=== PATIENT | male | born 1955 | race Caucasian/White ===

== ENCOUNTER 2019-04-18 19:22 | Observation (INO) ==
[2019-04-18] MEDS ORDERED: diazePAM 10 MG/2 ML SYRINGE IVP ONE (20:20)
[2019-04-18] MEDS ORDERED: Thiamine (B-1) 100 MG, Folic Acid 1 MG, MVI, adult with vitamin K 10 ML in 0.9 % Sodi... IVPB ONE (20:25)
[2019-04-18] MEDS ORDERED: Ondansetron 4 MG/2 ML VIAL IVP ONE (20:48)
[2019-04-18 21:03] LABS: Basophils # 0.1 K/mcL (0.0-0.2); Basophils % 0.8 %; Eosinophils % 0.1 %; Hematocrit 42.8 % (37.5-50.1); Hemoglobin 15.2 g/dL (12.9-16.9); Immature Granulocytes % 0.3 % (0-4); Lymphocytes % 13.4 %; Mean Corpuscular HGB Conc 35.5 g/dL (31.6-35.5); Mean Corpuscular Hemoglobin 29.4 pg (28.0-33.3); Mean Corpuscular Volume 82.8 fL (83.0-100.0); Mean Platelet Volume 9.1 fL (9.4-12.4); Monocytes # 0.4 K/mcL (0.0-1.3); Monocytes % 5.6 %; Neutrophils # 5.9 K/mcL (1.6-8.9); Platelet Count 169 K/mcL (140-400); Red Blood Count 5.17 M/mcL (4.19-5.50); Segmented Neutrophils % 79.8 %; White Blood Count 7.4 K/mcL (4.3-11.1)
[2019-04-18 21:23] LABS: Alanine Aminotransferase 77 Units/L (7-52); Albumin 4.5 g/dL (3.5-5.7); Albumin/Globulin Ratio 1.4 (1.1-2.2); Alkaline Phosphatase 67 Units/L (34-104); Aspartate Amino Transferase 121 Units/L (13-39); BUN/Creatinine Ratio 27 (6-26); Bilirubin,Total 1.2 mg/dL (0.3-1.0); Blood Urea Nitrogen 18 mg/dL (8-23); Calcium 9.3 mg/dL (8.6-10.3); Carbon Dioxide 22 mEq/L (23-29); Chloride 85 mEq/L (98-107); Globulin 3.3 g/dL (2.4-3.5); Glucose 189 mg/dL (70-105); Magnesium 1.5 mg/dL (1.6-2.6); Osmolality,Calculated 281 (280-300); Potassium 3.9 mEq/L (3.5-5.1); Sodium 132 mEq/L (136-145); Total Protein 7.8 g/dL (6.4-8.9); eGFR For African Americans > 60 (> 60); eGFR For Non-African Americans > 60 (> 60)
[2019-04-18] MEDS ORDERED: *HR* LORazepam 2 MG/ML VIAL IVP PRN ×2 (22:57)
[2019-04-18 23:17] LABS: Amylase 64 Units/L (29-103); Lipase 16 Units/L (11-82)
[2019-04-18] MEDS ORDERED: *HR* Promethazine 25 MG/ML VIAL IVP ONE (23:55)
[2019-04-19] MEDS ORDERED: Naloxone 0.4 MG/ML INJ IVP PRN (00:03)
[2019-04-19] MEDS: 0.9 % Sodium Chloride 1,000 ML IVC SCH ×3 (00:20→20:50)
[2019-04-19] MEDS ORDERED: *HR* LORazepam 2 MG/ML VIAL IVP ONE (01:16)
[2019-04-19 04:41] LABS: Hematocrit 37.9 % (37.5-50.1); Hemoglobin 13.1 g/dL (12.9-16.9); Immature Platelets 2.5 % (1.1-6.1); Mean Corpuscular HGB Conc 34.6 g/dL (31.6-35.5); Mean Corpuscular Hemoglobin 29.2 pg (28.0-33.3); Mean Corpuscular Volume 84.4 fL (83.0-100.0); Mean Platelet Volume 9.4 fL (9.4-12.4); Red Blood Count 4.49 M/mcL (4.19-5.50); White Blood Count 6.7 K/mcL (4.3-11.1)
[2019-04-19 05:00] LABS: BUN/Creatinine Ratio 25 (6-26); Blood Urea Nitrogen 15 mg/dL (8-23); Calcium 8.7 mg/dL (8.6-10.3); Carbon Dioxide 28 mEq/L (23-29); Chloride 91 mEq/L (98-107); Chol/HDL Ratio 2.2 (0-4.9); Cholesterol 184 mg/dL (< 200); Glucose 111 mg/dL (70-105); HDL Cholesterol 83 mg/dL (40-59); LDL Cholesterol,Calculated 80 mg/dL (0-99); Osmolality,Calculated 280 (280-300); Phosphorous 2.1 mg/dL (2.7-4.5); Sodium 134 mEq/L (136-145); Triglycerides 107 mg/dL (< 150); eGFR For African Americans > 60 (> 60); eGFR For Non-African Americans > 60 (> 60)
[2019-04-19 05:25] LABS: Vitamin B12 731 pg/mL (250-1100); Vitamin D 25 Hydroxy 29 ng/mL (30-80)
[2019-04-19 05:29] LABS: Hepatitis B Surface Antigen Nonreactive (Nonreactive)
[2019-04-19 05:57] LABS: Hepatitis C Virus Antibody Nonreactive (Nonreactive)
[2019-04-19 05:58] LABS: Hepatitis B Core IgM Nonreactive (Nonreactive)
[2019-04-19 05:59] LABS: Hepatitis A Antibody IgM Nonreactive (Nonreactive)
[2019-04-19] MEDS: Gabapentin 300 MG CAPSULE PO SCH ×3 (09:19→23:40)
[2019-04-19] MEDS: hydroCHLOROthiazide 25 MG TABLET PO SCH (09:19)
[2019-04-19] MEDS: Aspirin Enteric Coated 81 MG Tablet PO SCH (09:19)
[2019-04-19] MEDS: Lisinopril 20 MG TABLET PO SCH (09:19)
[2019-04-19] MEDS: NALOXONE SL SCH (09:20)
[2019-04-19] MEDS: BUPRENORPHINE SL SCH (09:20)
[2019-04-19] MEDS: *HR* LORazepam 2 MG/ML VIAL IVP PRN ×2 (09:26→15:43)
[2019-04-19] MEDS ORDERED: PHENobarbitaL 32.4 MG TABLET PO SCH ×3 (16:15→21:00)
[2019-04-20] MEDS ORDERED: *HR* Metoprolol 5 MG/5 ML VIAL IVP ONE (01:08)
[2019-04-20] MEDS: *HR* LORazepam 2 MG/ML VIAL IVP PRN (04:18)
[2019-04-20 05:59] LABS: Hematocrit 38.6 % (37.5-50.1); Hemoglobin 13.1 g/dL (12.9-16.9); Mean Corpuscular HGB Conc 33.9 g/dL (31.6-35.5); Mean Corpuscular Hemoglobin 29.2 pg (28.0-33.3); Mean Corpuscular Volume 86.2 fL (83.0-100.0); Mean Platelet Volume 9.9 fL (9.4-12.4); Platelet Count 75 K/mcL (140-400); Red Blood Count 4.48 M/mcL (4.19-5.50); Red Cell Distribution Width 13.2 % (11.5-14.5); White Blood Count 4.8 K/mcL (4.3-11.1)
[2019-04-20 06:00] LABS: BUN/Creatinine Ratio 29 (6-26); Blood Urea Nitrogen 21 mg/dL (8-23); Calcium 9.1 mg/dL (8.6-10.3); Carbon Dioxide 29 mEq/L (23-29); Chloride 97 mEq/L (98-107); Glucose 97 mg/dL (70-105); Osmolality,Calculated 285 (280-300); Potassium 3.8 mEq/L (3.5-5.1); Sodium 136 mEq/L (136-145); eGFR For African Americans > 60 (> 60); eGFR For Non-African Americans > 60 (> 60)
[2019-04-20] MEDS: 0.9 % Sodium Chloride 1,000 ML IVC SCH (06:40)
[2019-04-20] MEDS: Gabapentin 300 MG CAPSULE PO SCH (08:27)
[2019-04-20] MEDS: Lisinopril 20 MG TABLET PO SCH (08:27)
[2019-04-20] MEDS: hydroCHLOROthiazide 25 MG TABLET PO SCH (08:27)
[2019-04-20] MEDS: NALOXONE SL SCH (08:27)
[2019-04-20] MEDS: BUPRENORPHINE SL SCH (08:27)
[2019-04-20] MEDS: Aspirin Enteric Coated 81 MG Tablet PO SCH (08:27)
[2019-04-20 09:31] VITALS: BP 180/123
[2019-04-20] MEDS ORDERED: hydrALAZINE 25 MG TABLET PO ONE (09:33)
== END 2019-04-20 09:50 | disposition left against medical advice (07) ==
LOC: 2ANU 19:22 → EMEROOARM 19:22 → SUATTDRO 22:12 → 2ANU 22:22
PROVIDERS: ADMIT Student in an Organized Health Care Education/Training Program; ATTEND Student in an Organized Health Care Education/Training Program

== ENCOUNTER 2020-09-23 05:30 | Inpatient (IN) ==
[2020-09-23] MEDS ORDERED: Ondansetron 4 MG/2 ML VIAL IVP ONE (05:34)
[2020-09-23] MEDS ORDERED: 0.9 % Sodium Chloride 1,000 ML IVC ONE ×2 (05:34→06:45)
[2020-09-23] MEDS ORDERED: Thiamine (B-1) 100 MG in 0.9 % Sodium Chloride 50 ML IVPB ONE (05:58)
[2020-09-23 06:00] LABS: Basophils # 0.1 K/mcL (0.0-0.2); Eosinophils % 0.1 %; Hematocrit 43.4 % (37.5-50.1); Hemoglobin 14.4 g/dL (12.9-16.9); Immature Granulocytes % 1.1 % (0-4); Lymphocytes # 0.7 K/mcL (0.6-4.6); Lymphocytes % 8.6 %; Mean Corpuscular HGB Conc 33.2 g/dL (31.6-35.5); Mean Corpuscular Hemoglobin 29.3 pg (28.0-33.3); Mean Corpuscular Volume 88.4 fL (83.0-100.0); Mean Platelet Volume 9.1 fL (9.4-12.4); Monocytes # 0.6 K/mcL (0.0-1.3); Monocytes % 6.8 %; Neutrophils # 6.7 K/mcL (1.6-8.9); Platelet Count 101 K/mcL (140-400); Red Blood Count 4.91 M/mcL (4.19-5.50); Red Cell Distribution Width 13.4 % (11.5-14.5); Segmented Neutrophils % 82.4 %; White Blood Count 8.1 K/mcL (4.3-11.1)
[2020-09-23] MEDS ORDERED: Folic Acid 1 MG, Thiamine (B-1) 100 MG in 0.9 % Sodium Chloride 50 ML IVPB ONE (06:15)
[2020-09-23] MEDS ORDERED: Famotidine 20 MG/2 ML VIAL IVP ONE (06:20)
[2020-09-23] MEDS ORDERED: Prochlorperazine 10 MG/2 ML VIAL IVP ONE (06:21)
[2020-09-23 06:23] LABS: Alanine Aminotransferase 284 Units/L (7-52); Albumin 4.5 g/dL (3.5-5.7); Albumin/Globulin Ratio 1.6 (1.1-2.2); Alkaline Phosphatase 91 Units/L (34-104); Aspartate Amino Transferase 465 Units/L (13-39); BUN/Creatinine Ratio 22 (6-26); Bilirubin,Direct 1.1 mg/dL (0.0-0.2); Bilirubin,Indirect 1.3 mg/dL (0.0-1.0); Bilirubin,Total 2.4 mg/dL (0.3-1.0); Blood Urea Nitrogen 16 mg/dL (8-23); Carbon Dioxide 18 mEq/L (23-29); Chloride 90 mEq/L (98-107); Ethanol 350 mg/dL (Less than 10); Globulin 2.9 g/dL (2.4-3.5); Glucose 157 mg/dL (70-105); Magnesium 1.4 mg/dL (1.6-2.6); Osmolality,Calculated 292 (280-300); Potassium 3.5 mEq/L (3.5-5.1); Sodium 139 mEq/L (136-145); Total Protein 7.4 g/dL (6.4-8.9); Troponin I 0.03 ng/mL (< 0.04); eGFR For African Americans > 60 (> 60); eGFR For Non-African Americans > 60 (> 60)
[2020-09-23] MEDS ORDERED: *HR* LORazepam 2 MG/ML VIAL IVP ONE (06:43)
[2020-09-23] MEDS ORDERED: lisinopriL 20 MG TABLET PO SCH (06:53)
[2020-09-23] MEDS ORDERED: Naloxone 0.4 MG/ML INJ IVP PRN (07:30)
[2020-09-23] MEDS ORDERED: *HR* LORazepam 2 MG/ML VIAL IVP PRN (07:32)
[2020-09-23] MEDS ORDERED: *HR* Metoprolol 5 MG/5 ML VIAL IVP ONE ×2 (07:36→13:03)
[2020-09-23] MEDS ORDERED: Folic Acid 1 MG TABLET PO SCH (09:00)
[2020-09-23 09:41] LABS: INR 1.2; Prothrombin Time 13.8 Seconds (9.4-12.1)
[2020-09-23] MEDS: Vitamin B Complex/Vit C/Vit E 1 EACH TABLET PO SCH (10:10)
[2020-09-23] MEDS: *HR* LORazepam 2 MG/ML VIAL IVP PRN ×5 (10:12→21:54)
[2020-09-23] MEDS: D5% in 0.9% NACL 1,000 ML IVC SCH (11:11)
[2020-09-23] MEDS: Budesonide/Formoterol 160/4.5 1 PUFF INH IH SCH (20:54)
[2020-09-23] MEDS: *HR* Buprenorphine HCl 8 MG TAB.SUBL SL SCH (21:54)
[2020-09-24] MEDS: D5% in 0.9% NACL 1,000 ML IVC SCH (00:01)
[2020-09-24 03:04] LABS: Immature Granulocytes % 0.7 % (0-4)
[2020-09-24 03:06] LABS: Basophils % 0.9 %; Eosinophils # 0.1 K/mcL (0.0-0.6); Eosinophils % 1.6 %; Hematocrit 35.1 % (37.5-50.1); Hemoglobin 11.5 g/dL (12.9-16.9); Immature Platelets 3.9 % (1.1-6.1); Lymphocytes # 0.8 K/mcL (0.6-4.6); Lymphocytes % 19.1 %; Mean Corpuscular HGB Conc 32.8 g/dL (31.6-35.5); Mean Corpuscular Hemoglobin 29.8 pg (28.0-33.3); Mean Corpuscular Volume 90.9 fL (83.0-100.0); Mean Platelet Volume 10.9 fL (9.4-12.4); Monocytes # 0.6 K/mcL (0.0-1.3); Monocytes % 12.8 %; Neutrophils # 2.9 K/mcL (1.6-8.9); Red Blood Count 3.86 M/mcL (4.19-5.50); Red Cell Distribution Width 13.4 % (11.5-14.5); Segmented Neutrophils % 64.9 %; White Blood Count 4.4 K/mcL (4.3-11.1)
[2020-09-24 03:09] LABS: Platelet Count 61 K/mcL (140-400)
[2020-09-24 03:27] LABS: BUN/Creatinine Ratio 20 (6-26); Blood Urea Nitrogen 11 mg/dL (8-23); Calcium 8.1 mg/dL (8.6-10.3); Carbon Dioxide 28 mEq/L (23-29); Chloride 95 mEq/L (98-107); Glucose 168 mg/dL (70-105); Osmolality,Calculated 281 (280-300); Potassium 3.5 mEq/L (3.5-5.1); Sodium 134 mEq/L (136-145); eGFR For African Americans > 60 (> 60); eGFR For Non-African Americans > 60 (> 60)
[2020-09-24] MEDS: *HR* LORazepam 2 MG/ML VIAL IVP PRN ×3 (04:23→22:53)
[2020-09-24] MEDS: Budesonide/Formoterol 160/4.5 1 PUFF INH IH SCH ×2 (07:26→21:37)
[2020-09-24 07:47] LABS: Alanine Aminotransferase 180 Units/L (7-52); Albumin 3.7 g/dL (3.5-5.7); Albumin/Globulin Ratio 1.7 (1.1-2.2); Alkaline Phosphatase 76 Units/L (34-104); Aspartate Amino Transferase 195 Units/L (13-39); Bilirubin,Direct 0.5 mg/dL (0.0-0.2); Bilirubin,Indirect 1.5 mg/dL (0.0-1.0); Globulin 2.2 g/dL (2.4-3.5); Magnesium 1.5 mg/dL (1.6-2.6); Phosphorous 2.5 mg/dL (2.7-4.5); Total Protein 5.9 g/dL (6.4-8.9)
[2020-09-24] MEDS: BUPRENORPHINE HCL SL SCH (09:28)
[2020-09-24] MEDS: Aspirin Enteric Coated 81 MG Tablet PO SCH (09:28)
[2020-09-24] MEDS: lisinopriL 20 MG TABLET PO SCH (09:28)
[2020-09-24] MEDS: Folic Acid 1 MG TABLET PO SCH (09:28)
[2020-09-24] MEDS: Thiamine (B-1) 100 MG TABLET PO SCH (09:28)
[2020-09-24] MEDS: Vitamin E 200 UNIT (90MG) CAPSULE PO SCH (09:28)
[2020-09-24] MEDS: NALOXONE SL SCH (09:28)
[2020-09-24] MEDS: Vitamin B Complex/Vit C/Vit E 1 EACH TABLET PO SCH (09:28)
[2020-09-24] MEDS: ACAMPROSATE CALCIUM 333 MG PO SCH ×4 (12:05→21:03)
[2020-09-24] MEDS: Gabapentin 300 MG CAPSULE PO SCH ×2 (15:32→20:39)
[2020-09-24] MEDS ORDERED: *HR* Labetalol 20 MG/4 ML SYRINGE IVP ONE (17:25)
[2020-09-24] MEDS: *HR* Buprenorphine HCl 8 MG TAB.SUBL SL SCH (20:39)
[2020-09-25] MEDS: Budesonide/Formoterol 160/4.5 1 PUFF INH IH SCH ×2 (07:42→19:55)
[2020-09-25] MEDS: Vitamin B Complex/Vit C/Vit E 1 EACH TABLET PO SCH (07:52)
[2020-09-25] MEDS: *HR* LORazepam 2 MG/ML VIAL IVP PRN ×4 (07:52→23:26)
[2020-09-25] MEDS: Folic Acid 1 MG TABLET PO SCH (07:52)
[2020-09-25] MEDS: Aspirin Enteric Coated 81 MG Tablet PO SCH (07:53)
[2020-09-25] MEDS: ACAMPROSATE CALCIUM 333 MG PO SCH ×3 (07:53→21:22)
[2020-09-25] MEDS: Gabapentin 300 MG CAPSULE PO SCH ×3 (07:53→21:19)
[2020-09-25] MEDS: Vitamin E 200 UNIT (90MG) CAPSULE PO SCH (07:53)
[2020-09-25] MEDS: Thiamine (B-1) 100 MG TABLET PO SCH (07:53)
[2020-09-25] MEDS: lisinopriL 20 MG TABLET PO SCH (07:53)
[2020-09-25] MEDS: BUPRENORPHINE HCL SL SCH (07:54)
[2020-09-25] MEDS: NALOXONE SL SCH (07:54)
[2020-09-25] MEDS: hydroCHLOROthiazide 25 MG TABLET PO SCH (09:19)
[2020-09-25 12:14] LABS: Alanine Aminotransferase 133 Units/L (7-52); Albumin 3.9 g/dL (3.5-5.7); Albumin/Globulin Ratio 1.5 (1.1-2.2); Alkaline Phosphatase 73 Units/L (34-104); Aspartate Amino Transferase 92 Units/L (13-39); BUN/Creatinine Ratio 15 (6-26); Bilirubin,Total 1.9 mg/dL (0.3-1.0); Blood Urea Nitrogen 9 mg/dL (8-23); Calcium 9.3 mg/dL (8.6-10.3); Carbon Dioxide 31 mEq/L (23-29); Chloride 92 mEq/L (98-107); Globulin 2.6 g/dL (2.4-3.5); Glucose 146 mg/dL (70-105); Magnesium 1.2 mg/dL (1.6-2.6); Osmolality,Calculated 275 (280-300); Phosphorous 2.3 mg/dL (2.7-4.5); Potassium 3.3 mEq/L (3.5-5.1); Sodium 132 mEq/L (136-145); Total Protein 6.5 g/dL (6.4-8.9); eGFR For African Americans > 60 (> 60); eGFR For Non-African Americans > 60 (> 60)
[2020-09-25] MEDS: *HR* Buprenorphine HCl 8 MG TAB.SUBL SL SCH (21:21)
[2020-09-26 05:50] LABS: Alanine Aminotransferase 136 Units/L (7-52); Albumin 4.2 g/dL (3.5-5.7); Albumin/Globulin Ratio 1.4 (1.1-2.2); Alkaline Phosphatase 89 Units/L (34-104); Aspartate Amino Transferase 105 Units/L (13-39); BUN/Creatinine Ratio 17 (6-26); Bilirubin,Total 1.9 mg/dL (0.3-1.0); Blood Urea Nitrogen 12 mg/dL (8-23); Calcium 9.5 mg/dL (8.6-10.3); Carbon Dioxide 25 mEq/L (23-29); Chloride 94 mEq/L (98-107); Globulin 2.9 g/dL (2.4-3.5); Glucose 138 mg/dL (70-105); Magnesium 1.4 mg/dL (1.6-2.6); Osmolality,Calculated 276 (280-300); Phosphorous 3.7 mg/dL (2.7-4.5); Potassium 3.6 mEq/L (3.5-5.1); Sodium 132 mEq/L (136-145); Total Protein 7.1 g/dL (6.4-8.9); eGFR For African Americans > 60 (> 60); eGFR For Non-African Americans > 60 (> 60)
[2020-09-26 06:12] VITALS: BP 170/98
[2020-09-26] MEDS ORDERED: Magnesium Sulfate 2 GM/100 ML PIGGYBACK IVPB ONE (07:09)
[2020-09-26] MEDS: Budesonide/Formoterol 160/4.5 1 PUFF INH IH SCH (07:31)
[2020-09-26] MEDS: Aspirin Enteric Coated 81 MG Tablet PO SCH (09:48)
[2020-09-26] MEDS: Gabapentin 300 MG CAPSULE PO SCH (09:48)
[2020-09-26] MEDS: Vitamin B Complex/Vit C/Vit E 1 EACH TABLET PO SCH (09:48)
[2020-09-26] MEDS: Vitamin E 200 UNIT (90MG) CAPSULE PO SCH (09:49)
[2020-09-26] MEDS: lisinopriL 20 MG TABLET PO SCH (09:49)
[2020-09-26] MEDS: ACAMPROSATE CALCIUM 333 MG PO SCH (09:49)
[2020-09-26] MEDS: hydroCHLOROthiazide 25 MG TABLET PO SCH (09:49)
[2020-09-26] MEDS: Folic Acid 1 MG TABLET PO SCH (09:49)
[2020-09-26] MEDS: Thiamine (B-1) 100 MG TABLET PO SCH (09:49)
== END 2020-09-26 11:04 | disposition home or self-care (01) | DRG 433 ==
LOC: EMEROOARM 05:30 → 2ANU 05:30 → SUATTDRO 18:41
PROVIDERS: ADMIT Internal Medicine; ATTEND Internal Medicine